=== PATIENT | female | born 1950 | race Caucasian/White ===

== ENCOUNTER 2024-08-24 07:03 | Outpatient (CLI) | payer OTHER ==
[~2024-08-24 07:03] MED LIST: ATENOLOL25 GM; ATENOLOL25 MG; HYDROCHLOROTH12.5 M1; TOPROL XL25 M1
== END 2024-08-24 07:13 | disposition home or self-care (01) ==
LOC: RAD 07:03
PROVIDERS: ATTEND Surgery
DX: R19.4 Change in bowel habit (principal); R63.4 Abnormal weight loss; K56.600 Partial intestinal obstruction, unspecified as to cause; K56.690 Other partial intestinal obstruction; C49.A3 Gastrointestinal stromal tumor of small intestine; C17.8 Malignant neoplasm of overlapping sites of small intestine

== ENCOUNTER → 2024-08-24 07:55 | Outpatient (CLI) | payer OTHER ==
[~2024-08-24 07:55] MED LIST changes: +LOSARTAN POTASS50 MG PO; +SYNTHROID100 MCG PO; -TOPROL XL25 M1; +TOPROL XL25 M1 PO
[2024-08-24 08:55] LABS: URINE APPEARANCE Clear; URINE BILIRRUBIN Negative (NEGATIVE); URINE BLOOD Negative; URINE COLOR Dark Yellow; URINE GLUCOSE Negative (NEGATIVE); URINE KETONE Trace (NEGATIVE); URINE LEUKOCYTE Small; URINE NITRATE Negative; URINE PROTEIN 30 (NEGATIVE)
[2024-08-24 08:59] LABS: URINE BACTERIA 134.8 uL (0.0-1933); URINE CAST 1.67 uL (0.0-1.40); URINE EPITHELIAL CELLS 50.6 uL (0.0-38.8); URINE RBC 26.1 uL (0.0-20.8); URINE WBC 38.3 uL (0.0-23.2)
[2024-08-24 09:01] LABS: HEMATOCRIT 32.3 % (36.0-45.00); HEMOGLOBIN 10.6 g/dL (12.0-15.00); MEAN CELL VOLUME 80.8 fL (80.00-100.00); MEAN CORPUSCULAR HEMOGLOBIN 26.5 pg (27.00-32.0); MEAN CORPUSCULAR HGB CONC 32.8 g/dl (32.0-36.0); PLATELET COUNT 475 K/uL (150-450); RED CELL DISTRIBUTION WIDTH 16.6 % (11.5-14.5)
[2024-08-24 09:33] LABS: PARTIAL THROMBOPLASTIN TIME 25.7 SECONDS (22.0-34.0)
[2024-08-24 09:34] LABS: INR 1.05; PROTHROMBIN TIME 10.9 SECONDS (9.0-11.5)
[2024-08-24 10:00] LABS: ALBUMIN 2.5 gm/dL (3.4-5.0); BILIRUBIN TOTAL 0.84 mg/dL (0.3-1.2); CALCIUM 8.9 mg/dL (8.5-10.1); CREATININE SERUM 0.49 mg/dL (0.55-1.02); GFR 124.49; GLOBULINA 3.3 G/DL (2.4-3.5); POTASSIUM 3.46 mEq/L (3.5-5.1); TOTAL PROTEIN 5.8 gm/dL (6.4-8.2)
== END | disposition home or self-care (01) ==
LOC: LAB 07:55
PROVIDERS: ATTEND Surgery
DX: R19.4 Change in bowel habit (principal); R63.4 Abnormal weight loss; K56.600 Partial intestinal obstruction, unspecified as to cause; K56.690 Other partial intestinal obstruction; C49.A3 Gastrointestinal stromal tumor of small intestine; C17.8 Malignant neoplasm of overlapping sites of small intestine

== ENCOUNTER 2024-08-25 09:15 | Inpatient (IN) | payer OTHER ==
[~2024-08-25] VITALS: Ht 160 cm; Wt 58.5 kg
[~2024-08-25 09:15] MED LIST changes: -LOSARTAN POTASS50 MG PO; -SYNTHROID100 MCG PO
[2024-08-26] MEDS ORDERED: LOSARTAN POTASS50 MG PO (15:02)
[2024-08-26 15:03] VITALS: BP 118/76
[2024-08-26] MEDS ORDERED: SYNTHROID100 MCG PO (15:03)
[2024-08-27] MEDS ORDERED: LIDOCAINE HCL 1%/EPINEPHRINE 20ML VIAL IJ ONE (15:00)
[2024-08-27] MEDS ORDERED: METROnidazole 500 MG TABLET PO ONE (15:00)
[2024-08-27] MEDS ORDERED: levoFLOXacin 750 MG TABLET PO ONE (15:00)
[2024-08-27] MEDS ORDERED: BUPIVACAINE HCL 30 ML VIAL IJ ONE (15:00)
[2024-08-27] MEDS ORDERED: MORPHINE SULFATE 2 MG/ML CARTRIDGE IV ONE (15:55)
[2024-08-27] MEDS ORDERED: MORPHINE SULFATE 4 MG/ML CARTRIDGE IV PRN (16:00)
[2024-08-27] MEDS ORDERED: OxyCODONE HCL 5 MG TABLET (ROXICODONE) PO PRN (16:00)
[2024-08-27] MEDS ORDERED: ONDANSETRON HCL 2 MG/ML VIAL IV PRN (16:00)
[2024-08-27] MEDS ORDERED: DEXTROSE 50 % IN WATER 0.5 G/ML DISP.SYRIN IV PRN (16:00)
[2024-08-27] MEDS ORDERED: 0.9 % SODIUM CHLORIDE 1,000 ML IV SCH (16:00)
[2024-08-27] MEDS ORDERED: ENALAPRILAT DIHYDRATE 1.25 MG/ML VIAL IV PRN (17:00)
[2024-08-27] MEDS ORDERED: POLYETHYLENE GLYCOL 3350 17 GM BLIST.PACK PO SCH (17:00)
[2024-08-27] MEDS ORDERED: METRONIDAZOLE/SODIUM CHLORIDE 500 MG/100 ML PIGGYBACK IV SCH (17:00)
[2024-08-27] MEDS ORDERED: HYOSCYAMINE SULFATE 0.125 MG TAB.SUBL SL SCH (17:00)
[2024-08-27] MEDS ORDERED: GABAPENTIN 300 MG CAPSULE PO SCH (17:00)
[2024-08-27 17:37] LABS: HEMATOCRIT 29.7 % (36.0-45.00); HEMOGLOBIN 9.7 g/dL (12.0-15.00); MEAN CELL VOLUME 81.2 fL (80.00-100.00); MEAN CORPUSCULAR HEMOGLOBIN 26.5 pg (27.00-32.0); MEAN CORPUSCULAR HGB CONC 32.7 g/dl (32.0-36.0); PLATELET COUNT 361 K/uL (150-450); RED BLOOD COUNT 3.66 M/uL (4.00-6.00); RED CELL DISTRIBUTION WIDTH 16.3 % (11.5-14.5)
[2024-08-27 18:15] LABS: ALBUMIN 1.9 gm/dL (3.4-5.0); CALCIUM 8.1 mg/dL (8.5-10.1); CREATININE SERUM 0.37 mg/dL (0.55-1.02); GFR 172.16; MAGNESIUM 1.5 mg/dL (1.8-2.4)
[2024-08-27 18:45] LABS: POTASSIUM 2.91 mEq/L (3.5-5.1)
[2024-08-27] MEDS ORDERED: POTASSIUM CHLORIDE 20MEQ/100ML H2O PB IV SCH (19:30)
[2024-08-27] MEDS ORDERED: ACETAMINOPHEN 500 MG GEL..CAP PO SCH (20:00)
[2024-08-27] MEDS ORDERED: FAMOTIDINE/PF 20 MG/2 ML VIAL IV PUSH SCH (21:00)
[2024-08-27] MEDS ORDERED: CELECOXIB 200 MG CAPSULE PO SCH (21:00)
[2024-08-28 00:28] VITALS: BP 130/76; O2SAT 97
[2024-08-28] MEDS ORDERED: SYNTHROID BRAND ONLY PO SCH ×2 (06:00)
[2024-08-28 06:14] LABS: HEMATOCRIT 31.8 % (36.0-45.00); HEMOGLOBIN 10.5 g/dL (12.0-15.00); MEAN CORPUSCULAR HEMOGLOBIN 27.1 pg (27.00-32.0); MEAN CORPUSCULAR HGB CONC 33.1 g/dl (32.0-36.0); PLATELET COUNT 378 K/uL (150-450); RED BLOOD COUNT 3.88 M/uL (4.00-6.00); RED CELL DISTRIBUTION WIDTH 16.3 % (11.5-14.5)
[2024-08-28 06:49] LABS: CALCIUM 8.3 mg/dL (8.5-10.1); CREATININE SERUM 0.35 mg/dL (0.55-1.02); GFR 183.56; MAGNESIUM 1.6 mg/dL (1.8-2.4); POTASSIUM 3.19 mEq/L (3.5-5.1)
[2024-08-28 08:30] VITALS: BP 112/65; O2SAT 97
[2024-08-28] MEDS ORDERED: METOPROLOL SUCCINATE 50 MG TAB.SR.24H PO SCH (09:00)
[2024-08-28] MEDS ORDERED: LOSARTAN POTASSIUM 100 MG TABLET PO SCH (09:00)
[2024-08-28] MEDS ORDERED: POTASSIUM CHLORIDE 20MEQ/100ML H2O PB IV NR (10:45)
[2024-08-28] MEDS ORDERED: POTASSIUM CHLORIDE 20MEQ/100ML H2O PB IV ONE (10:45)
[2024-08-28] MEDS ORDERED: MAGNESIUM SULFATE IN WATER 50 ML IV NR (10:45)
[2024-08-28 17:00] VITALS: BP 149/67; O2SAT 98
[2024-08-28] MEDS ORDERED: Cyanocobalamin/Mecobalamin 1 TAB.SL SL SCH (17:00)
[2024-08-28] MEDS ORDERED: ENOXAPARIN SODIUM 40 MG/0.4 ML SYRINGE SUBCUTANEO SCH (17:00)
[2024-08-28] MEDS ORDERED: SOD FERRIC GLUC COMPLX/SUCROSE 62.5 MG in 0.9 % SODIUM CHLORIDE 50 ML IV SCH (17:00)
[2024-08-28] MEDS ORDERED: DIPHENHYDRAMINE HCL 50 MG/ML VIAL 1ML IV ONE (20:30)
[2024-08-28] MEDS ORDERED: MELATONIN 5 MG TABLET PO SCH (21:00)
[2024-08-28] MEDS ORDERED: DIPHENHYDRAMINE HCL 50 MG/ML VIAL 1ML IM ONE (22:00)
[2024-08-28] MEDS ORDERED: HALOPERIDOL LACTATE 5 MG/ML AMPUL IM ONE (22:00)
[2024-08-29 00:42] VITALS: BP 127/73; O2SAT 97
[2024-08-29] MEDS ORDERED: SYNTHROID 75 MCG (MARCA ORIGINAL) PO SCH (06:00)
[2024-08-29 08:00] VITALS: BP 147/78; O2SAT 98
[2024-08-29] MEDS ORDERED: ENOXAPARIN SODIUM 40 MG/0.4 ML SYRINGE SUBCUTANEO SCH (09:00)
[2024-08-29 16:29] VITALS: BP 154/75; O2SAT 95
[2024-08-30 00:05] VITALS: BP 137/79; O2SAT 100
[2024-08-30] MEDS ORDERED: SYNTHROID 100 MCG PO SCH (06:00)
[2024-08-30 07:38] VITALS: BP 130/69; O2SAT 98
[2024-08-30 08:10] LABS: CALCIUM 7.9 mg/dL (8.5-10.1); CREATININE SERUM 0.3 mg/dL (0.55-1.02); GFR 218.68; MAGNESIUM 1.5 mg/dL (1.8-2.4); PHOSPHOROUS 2.9 mg/dL (2.5-4.9); POTASSIUM 3.35 mEq/L (3.5-5.1)
[2024-08-30 08:11] LABS: HEMATOCRIT 27.6 % (36.0-45.00); HEMOGLOBIN 9.2 g/dL (12.0-15.00); MEAN CELL VOLUME 81.3 fL (80.00-100.00); MEAN CORPUSCULAR HEMOGLOBIN 27.1 pg (27.00-32.0); MEAN CORPUSCULAR HGB CONC 33.3 g/dl (32.0-36.0); PLATELET COUNT 376 K/uL (150-450); RED CELL DISTRIBUTION WIDTH 16.2 % (11.5-14.5)
[2024-08-30] MEDS ORDERED: POTASSIUM CHLORIDE 8 MEQ TABLET PO NR (10:03)
[2024-08-30] MEDS ORDERED: MAGNESIUM CHLORIDE 70 MG TABLET.DR PO ONE (10:03)
[2024-08-30] MEDS ORDERED: DIATRIZOATE MEGLUMINE, SODIUM 30 ML BOTTLE PO STA (11:04)
[2024-08-30 16:00] VITALS: BP 154/85; O2SAT 96
[2024-08-31] VITALS: BP 126/63; O2SAT 97
[2024-08-31] MEDS ORDERED: DIATRIZOATE MEGLUMINE, SODIUM 30 ML BOTTLE PO SCH (06:00)
[2024-08-31] MEDS ORDERED: SYNTHROID 75 MCG (MARCA ORIGINAL) PO SCH (06:00)
[2024-08-31 08:00] VITALS: BP 120/69; O2SAT 98
[2024-08-31] MEDS ORDERED: INTESTINEX680 M1 PO (13:26)
[2024-08-31] MEDS ORDERED: HYOSCYAMINE0.125 M1 SL (13:26)
[2024-08-31] MEDS ORDERED: TRAM1TAB98 PO (13:26)
[2024-08-31] MEDS ORDERED: PEPCID AC20 MG PO (13:27)
== END 2024-08-31 15:15 | disposition home or self-care (01) | DRG 330 ==
LOC: SURH 08-27 08:55 → O/R 08-27 08:55 → SURH 08-27 09:15
PROVIDERS: Internal Medicine Geriatric Medicine; Urology; ADMIT Surgery; ATTEND Surgery
PROC: 0TQB4ZZ Repair Bladder, Percutaneous Endoscopic Approach (ICD-10-PCS; 2024-08-27)
PROC: 0DT84ZZ Resection of Small Intestine, Percutaneous Endoscopic Approach (ICD-10-PCS; principal; 2024-08-27 15:00)
PROC: 0DNB4ZZ Release Ileum, Percutaneous Endoscopic Approach (ICD-10-PCS; 2024-08-27 15:00)
DX: C49.A3 Gastrointestinal stromal tumor of small intestine (principal); C17.8 Malignant neoplasm of overlapping sites of small intestine; K56.600 Partial intestinal obstruction, unspecified as to cause; K56.690 Other partial intestinal obstruction